=== PATIENT | female | born 1990 | race Caucasian/White ===

== ENCOUNTER 2017-02-13 06:54 | Inpatient (IN) | payer MEDICAID ==
[2017-02-13] MEDS ORDERED: NS 1,000 ML IV ONE (07:00)
[2017-02-13] MEDS ORDERED: LORazepam 2 MG/ML INJ IVP ONE (07:00)
[2017-02-13 07:10] LABS: ADD DIFF? YES; ADD MORPH? NO; ATYPICAL LYMPHOCYTE FLAG 0 (0-99); FRAGMENT RBC FLAG 0 (0-99); HEMATOCRIT 42.9 % (38.0-47.0); LEFT SHIFT FLG 50 (0-99); LIPEMIA HEMOLYSIS FLAG 90 (0-99); MEAN CELL HEMOGLOBIN 28.5 pg (27.9-34.1); MEAN CELL VOLUME 81.4 fL (81.5-99.8); MEAN PLATELET VOLUME 8.8 fL (8.7-11.7); PLATELET CLUMPS FLAG 0 (0-99); PLATELET COUNT 456 10^3/uL (150-400); RED BLOOD CELL COUNT 5.27 10^6/uL (4.18-5.33); RED CELL DISTRIBUTION WIDTH 13.6 % (11.5-15.2)
[2017-02-13 07:15] LABS: ADD SCAN? NO
--- NOTE | 2017-02-13 07:25 | CPEKG ---
Heart Rate: 143 RR Interval: 420 P-R Interval: 112 QRSD Interval: 82 QT Interval: 280 QTC Interval: 432 P [place]: 61 QRS [place]: 4 T Wave [place]: 15 EKG Severity - BORDERLINE ECG - EKG Impression: SINUS TACHYCARDIA EKG Impression: BORDERLINE T WAVE ABNORMALITIES Electronically Signed By: Gilda Branham 15-Feb-2017 14:16:02
[2017-02-13 07:28] LABS: ANION GAP 14 mEq/L (8-16); CALCIUM 9.3 mg/dL (8.5-10.4); CARBON DIOXIDE 23 mEq/l (22-31); CHLORIDE 100 mEq/L (97-110); CREATININE 0.7 mg/dL (0.6-1.0); GLOMERULAR FILTRATION RATE > 60; GLUCOSE 85 mg/dL (70-100); POTASSIUM 3.9 mEq/L (3.5-5.2); SODIUM 137 mEq/L (134-144)
--- NOTE | 2017-02-13 07:31 | EDPHY ---
HPI/HX/ROS/PE/MDM Narrative: CHIEF COMPLAINT: Tachycardia HPI: This patient is a 26 y/o female arriving via EMS presenting with tachycardia and chest pain. She states her pain began this morning upon waking. The pain is localized under her left breast. She denies cough, fever, vomiting, diarrhea, dysuria, abdominal pain, or other associated symptoms. She denies pertinent past medical history. She states she felt well prior to this morning. No trauma. REVIEW OF SYSTEMS: Aside from elements discussed in the HPI, a comprehensive 10-point review of systems was reviewed and is negative. PMH: Denies. SOCIAL HISTORY: Transient. Lives in [place]. Originally from [place]. PHYSICAL EXAM: General:Patient is alert, appears in pain. ENT:Eyes are normal to inspection. ENT inspection normal. Neck: Normal inspection. Full range of motion. Respiratory: Tenderness over left lower costal margin. No respiratory distress. Breath sounds normal bilaterally. Cardiovascular: Tahchycardic rate and rhythm. Strong peripheral pulses. Normal cap refill. Abdomen:The abdomen is nontender to palpation. There are no peritoneal signs. There are normal bowel sounds. Back: Normal to inspection. No tenderness to palpation. Skin: Normal color. No rash. Warm and dry. Extremities: Normal appearance. Full range of motion. Neuro: Oriented x3. Normal motor function. Normal sensory function. ED Course: 26 y/o female presents with tachycardia and left-sided chest pain. Exam reveals tenderness to the left lower costal margin. She is tachycardic at 148 and hypotensive at 93/54. Plan for labs including CBC, chemistries. Administered 1mg IV Ativan. WBC elevated at 40,000. Plan for additional laboratory studies per sepsis protocol including lactic acid, blood cultures, flu swab. Plan to administer 750mg IV Levaquin, 1L IV NS. Lactic 2.3. Chest x-ray shows large lingular consolidation. Plan for CTA chest for further evaluation and to r/o pulmonary embolism. 09:[address] Zambrano, radiologist. CT negative for PE. Evidence of lingular pneumonia as seen on x-ray. Plan to admit for pneumonia, severe sepsis. 09:20 Spoke with hospitalist service. Dr. Culver accepts admission. 11:45 Notified by patient's nurse that she remains hypotensive at 92/47. Repeat Lactaid 2.0. Notified and discussed with Dr. Culver and we are in agreement regarding treatment plan. MDM: This patient presents ultimately with pneumonia but her presentation was complicated by a number of factors. She adamantly denied any previous symptoms , and presented with acute onset of chest pain and tachycardia in the setting of living out of a car, which raised concern for acute PE. Thankfully, CTA was negative for this disease, but our initial efforts in the ED were directed towards this potential diagnosis. Her exam on arrival was made more difficult by (inappropriate) administration of nitroglycerin by EMS prior to arrival, which complicated efforts to assess the cause of her hypotension. Her WBC was extraordinarily high which raised concerns for possible oncologic process, especially given initial lack of fever and her history of having no infectious symptoms. Ultimately, her workup proved positive for pneumonia, and she developed a fever while in the ED. She was aggressively fluid resuscitated and her lactate was initially mildly high but returned back within normal range while in the ED. She was noted to have several low BP readings, but interpretation of this was challenging as patient was actively able to ambulate without assistance in the ED, which did not seem to correlate with septic shock. Dr. Culver and I discussed her case extensively and we agreed to continue to monitor to see if patient's condition declared itself rather than place an emergent central line, as we did not feel pressors were currently indicated, but he will monitor patient closely and this may prove necessary if her condition declines. - Data Points Imaging Results: Imaging Impressions Chest X-Ray 02/13/17 07:00 Impression: Left upper lobe pneumonia; follow-up is recommended to ensure complete clearing.. Chest/Thorax CTA 02/13/17 07:31 Impression: 1. No evidence of pulmonary embolus using CT protocol. 2. Dense consolidation/pneumonia involving the lingula with patchy consolidation left lower lobe and focal area right lower lobe. Findings discussed with Leighton Medrano MD at 9:08 hour, 02/13/2017. Imaging: I viewed and interpreted images myself Laboratory Results: Laboratory Results 02/13/17 07:00 02/13/17 07:00 02/13/17 02/13/17 02/13/17 07:50 07:30 07:00 WBC RBC Hgb Hct MCV MCH MCHC RDW Plt Count MPV Neut % (Auto) Lymph % (Auto) Wilkinson % (Auto) Eos % (Auto) Baso % (Auto) Nucleat RBC Rel Count Absolute Neuts (auto) Absolute Lymphs (auto) Absolute Monos (auto) Absolute Eos (auto) Absolute Basos (auto) Absolute Nucleated RBC Immature Gran % Seg Neutrophils % Band Neutrophils % Lymphocytes % Monocytes % Metamyelocytes % Myelocytes % Immature Gran # Absolute Seg Neuts Absolute Band Neuts Absolute Lymphocytes Absolute Monocytes Absolute Metamyelocyte Absolute Myelocytes RBC/WBC/PLT Morphology Platelet Estimate Large Platelets Smear Review By VBG Lactic Acid 2.3 mmol/L H mmol/L (0.7-2.1) Sodium Potassium Chloride Carbon Dioxide Anion Gap BUN Creatinine Estimated GFR Glucose Calcium Troponin I Beta HCG, Qual Nasal Influenza A PCR NEGATIVE FOR FLU A (NEGATIVE) Nasal Influenza B PCR NEGATIVE FOR FLU B (NEGATIVE) Urine Opiates Screen NEGATIVE (NEGATIVE) Urine Barbiturates NEGATIVE (NEGATIVE) Ur Phencyclidine Scrn NEGATIVE (NEGATIVE) Ur Amphetamine Screen NEGATIVE (NEGATIVE) U Benzodiazepines Scrn NEGATIVE (NEGATIVE) Urine Cocaine Screen NEGATIVE (NEGATIVE) U Marijuana (THC) Screen NEGATIVE (NEGATIVE) 02/13/17 02/13/17 02/13/17 07:00 07:00 07:00 WBC 39.67 10^3/uL H 10^3/uL (3.80-9.50) RBC 5.27 10^6/uL 10^6/uL (4.18-5.33) Hgb 15.0 g/dL g/dL (12.6-16.3) Hct 42.9 % % (38.0-47.0) MCV 81.4 fL L fL (81.5-99.8) MCH 28.5 pg pg (27.9-34.1) MCHC 35.0 g/dL g/dL (32.4-36.7) RDW 13.6 % % (11.5-15.2) Plt Count 456 10^3/uL H 10^3/uL (150-400) MPV 8.8 fL fL (8.7-11.7) Neut % (Auto) Not Reported Lymph % (Auto) Not Reported Wilkinson % (Auto) Not Reported Eos % (Auto) Not Reported Baso % (Auto) Not Reported Nucleat RBC Rel Count 0.0 % % (0.0-0.2) Absolute Neuts (auto) Not Reported Absolute Lymphs (auto) Not Reported Absolute Monos (auto) Not Reported Absolute Eos (auto) Not Reported Absolute Basos (auto) Not Reported Absolute Nucleated RBC 0.00 10^3/uL 10^3/uL (0-0.01) Immature Gran % Not Reported Seg Neutrophils % 56 % % Band Neutrophils % 33 % % Lymphocytes % 5 % % Monocytes % 4 % % Metamyelocytes % 2 % % Myelocytes % 2 % % Immature Gran # Not Reported Absolute Seg Neuts 22.22 10^/uL H 10^/uL (1.70-6.50) Absolute Band Neuts 13.09 10^3/uL H 10^3/uL (0.00-0.70) Absolute Lymphocytes 1.98 10^3/uL 10^3/uL (1.00-3.00) Absolute Monocytes 1.59 10^3/uL H 10^3/uL (0.30-0.80) Absolute Metamyelocyte 0.79 10^3/mL H 10^3/mL (0.00-0.00) Absolute Myelocytes 0.79 10^3/mL H 10^3/mL (0.00-0.00) RBC/WBC/PLT Morphology NORMAL (NORMAL) Platelet Estimate INCREASED H (ADEQ) Large Platelets PRESENT H Smear Review By Sheridan CASPER MD VBG Lactic Acid Sodium 137 mEq/L mEq/L (134-144) Potassium 3.9 mEq/L mEq/L (3.5-5.2) Chloride 100 mEq/L mEq/L (97-110) Carbon Dioxide 23 mEq/l mEq/l (22-31) Anion Gap 14 mEq/L mEq/L (8-16) BUN 10 mg/dL mg/dL (7-23) Creatinine 0.7 mg/dL mg/dL (0.6-1.0) Estimated GFR > 60 Glucose 85 mg/dL mg/dL (70-100) Calcium 9.3 mg/dL mg/dL (8.5-10.4) Troponin I < 0.012 ng/mL ng/mL (0.000-0.034) Beta HCG, Qual NEGATIVE Nasal Influenza A PCR Nasal Influenza B PCR Urine Opiates Screen Urine Barbiturates Ur Phencyclidine Scrn Ur Amphetamine Screen U Benzodiazepines Scrn Urine Cocaine Screen U Marijuana (THC) Screen Medications Given: Acetaminophen (Tylenol) 650 mg PO Q4HRS PRN PRN Reason: Pain, Mild/Fever, Can Take PO Stop: 08/12/17 10:04 Last Admin: 02/13/17 10:40 Dose: 650 mg Ceftriaxone Sodium/Dextrose (Rocephin 1 Gm (Premix)) 50 mls @ 100 mls/hr IV DAILY GASTON PRN Reason: Protocol Stop: 03/15/17 10:29 Last Admin: 02/13/17 10:23 Dose: 50 mls Lactated Ringer's (Lr) 1,000 mls @ 200 mls/hr IV CONT GASTON Stop: 02/14/17 15:29 Last Admin: 02/13/17 10:41 Dose: 1,000 mls Discontinued Medications Sodium Chloride (Ns) 1,000 mls @ 0 mls/hr IV EDNOW ONE; Wide Open PRN Reason: Protocol Stop: 02/13/17 07:01 Last Admin: 02/13/17 07:05 Dose: 1,000 mls Sodium Chloride (Ns) 2,500 mls @ 5,000 mls/hr 30 ml/kg infuse over 30 min ( 2500 ml) IV EDNOW ONE PRN Reason: Protocol Stop: 02/13/17 08:05 Last Admin: 02/13/17 07:48 Dose: 2,500 mls Levofloxacin/Dextrose (Levaquin 750 Mg (Premix)) 150 mls @ 100 mls/hr IV EDNOW ONE PRN Reason: Protocol Stop: 02/13/17 09:23 Last Admin: 02/13/17 08:24 Dose: 150 mls Lorazepam (Ativan Injection) 1 mg IVP EDNOW ONE Stop: 02/13/17 07:01 Last Admin: 02/13/17 07:13 Dose: 1 mg General Time Seen by Provider: 02/13/17 07:00 Initial Vital Signs: Initial Vital Signs Temperature (C) 36.9 C 02/13/17 07:02 Heart Rate 148 H 02/13/17 07:02 Respiratory Rate 30 H 02/13/17 07:02 Blood Pressure 93/54 L 02/13/17 07:02 O2 Sat (%) 92 02/13/17 07:02 O2 Delivery Mode Nasal Cannula O2 (L/minute) 2 Allergies/Adverse Reactions: No Known Allergies Allergy (Unverified 02/13/17 07:05) Home Medications: Medication Instructions Recorded NK [No Known Home Meds] 02/13/17 Departure - Departure Disposition: [facility] Inpatient Acute Clinical Impression: Severe sepsis Pneumonia Qualifiers: Pneumonia type: due to unspecified organism Laterality: left Lung location: unspecified part of lung Qualified Code(s): J18.9 - Pneumonia, unspecified organism Condition: Fair Report Scribed for: Leighton Medrano Report Scribed by: Lucía Harrison Date of Report: 02/13/17 Time of Report: 07:55 Physician Review and Approval Statement: Portions of this note were transcribed by an ED scribe. I personally performed the history, physical exam, and medical decision making; and confirm the accuracy of the information in the transcribed note.
[2017-02-13] MEDS ORDERED: NS 2,500 ML IV ONE (07:36)
[2017-02-13] MEDS ORDERED: IOPAMIDOL (ISOVUE 370) 100 ML BTL IV ONE (07:37)
[2017-02-13 07:39] LABS: TROPONIN I < 0.012 ng/mL (0.000-0.034)
[2017-02-13 07:47] LABS: LARGE PLATELETS PRESENT; PLATELET ESTIMATE INCREASED (ADEQ)
[2017-02-13 08:48] LABS: LACGHOST ORDER
[2017-02-13] MEDS ORDERED: ONDANSETRON 4 MG/2 ML VIAL IVP PRN (10:05)
[2017-02-13] MEDS ORDERED: ONDANSETRON DISINTEGRATING 4 MG TAB PO PRN (10:05)
[2017-02-13] MEDS ORDERED: CEFTRIAXONE 1 GM/DEXTROSE/50 ML BAG IV ONE (10:18)
--- NOTE | 2017-02-13 10:36 | GHP ---
[f rep st] HISTORY AND PHYSICAL DATE OF ADMISSION: 02/13/2017 HISTORY OF PRESENT ILLNESS: Ms. Johnson is a 26-year-old female with a minimal past medical history, although she is a smoker who presents with chest pain that happened early this morning. She noted a cough yesterday productive of yellow sputum. She denies fevers and chills. She reported chest pain and called 911 from a car where she is living with her mother and possibly fiancee. She received nitroglycerin on route. She has not had diarrhea or vomiting. She is not a heavy alcohol drinker, in fact she drinks no alcohol. She has not had urinary symptoms or abdominal pain. She is currently homeless but denies sick contacts. When I see her in the emergency department she is somnolent but arousable. She did receive a mg of Ativan in the emergency department. Her mother notes she has a diagnosis of anxiety. REVIEW OF SYSTEMS: Complete 10-point review of systems conducted negative except as noted in the HPI. PAST MEDICAL HISTORY: Anxiety. ALLERGIES: No known drug allergies. HOME MEDICATIONS: None. SOCIAL HISTORY: Currently homeless. Originally from [place]. She smokes cigarettes. Minimal alcohol. FAMILY HISTORY: Father had diabetes. PHYSICAL EXAMINATION: VITAL SIGNS: Temperature 37.4, blood pressure 93/41, pulse in the 130s breathing 29 times a minute, 98% on 2 L. GENERAL: Somnolent but arousable. No acute distress. HEENT: Mucous membranes are dry. NECK: Supple. No lymphadenopathy or JVD. LUNGS: Clear to auscultation anterolaterally. She will not sit up for a full exam. HEART: S1, S2, tachycardic without murmur. ABDOMEN: Soft, nontender, nondistended. LOWER EXTREMITIES: No edema. Calves nontender. SKIN: Without rash. NEUROLOGIC: Exam is nonfocal. LABS: White count 39.7 with no differential although her neutrophil count is 22 , and band count is 13, this is a profound left shift. Venous lactate was 2.3 on presentation, now 2. Sodium 137, potassium 3.9, chloride 100, bicarb 23, BUN 10, creatinine 0.7, glucose 85. Troponin less than 0.012. Beta HCG is negative. Her nasal swab was influenza negative. She has a negative tox screen. Chest x-ray, interpreted by me, shows lingular pneumonia. EKG interpreted by me shows sinus tachycardia at 143 with normal axis and intervals and no ST or T-wave changes. CTA of the chest shows no pulmonary embolism and dense left lingular infiltrate with air bronchograms and no pleural effusion. Also noted by the radiologist is a focal area of infiltrate in the right lower lobe. ASSESSMENT/PLAN: A 26-year-old female presents with lingular pneumonia and sepsis. 1. Sepsis. This probably qualifies as severe sepsis given her tachycardia. She has received a fluid bolus, blood cultures and broad-spectrum antibiotics. She is afebrile. She does not have influenza. 2. Pneumonia. This is a lingular pneumonia. She received levofloxacin in the emergency department. I will transition to ceftriaxone and Zithromax. I feel given the degree of infiltrate in her illness I think there is a high likelihood this represents pneumococcal pneumonia. 3. Tobacco. Counseled cessation. 4. Prophylaxis. Pharmacologic prophylaxis indicated. Start low-molecular heparin. 5. Tachycardia. This is a strong inflammatory response in a young healthy person with significant pneumonia. Will admit her to step-down. 6. Somnolence. This is attributable to Ativan. Will follow. DISPOSITION: Step-down unit inpatient. UPDATE: patient persistently hypotensive/tachycardic. upon returning from [facility], cvp 4, sbp in 70's. volume and albumin given, pressors started w HR decreasing to 110's and map in 60's w uop and alert mentation. 45 ' crit care /[id number]/MODL MTDD
[2017-02-13] MEDS ORDERED: ACETAMINOPHEN 325 MG TAB ONE (10:39)
[2017-02-13] MEDS: ACETAMINOPHEN 325 MG TAB PO PRN (10:40)
[2017-02-13] MEDS: LR 1,000 ML IV SCH (10:41)
[2017-02-13] MEDS ORDERED: ALTEPLASE 2 MG VIAL IVP PRN (13:32)
--- NOTE | 2017-02-13 14:14 | PDMN ---
Medical Necessity Medical necessity: Patient meets INPT criteria per physician note and MCG M-160 Sepsis and Other Febrile Illness, without Focal Infection (lingular pneumonia on CXR, poss pneumococcal; lactic acidosis/lactate 2.3, tachypnea/RR to 36, tachycardia to 140's, hypotension/ syst BP 76 after IV hydration; leukocytosis/ WBC > 39,000; anticipated LOS > 2 midnights for ongoing IV hydration, IV antibiotics, supplemental O2, ongoing treatment/monitoring in SDU.)
[2017-02-13] MEDS ORDERED: ALBUMIN 5% 500 ML IV ONE (14:54)
[2017-02-13] MEDS ORDERED: ALBUMIN 5% 500 ML BOTTLE IV ONE (14:55)
[2017-02-13] MEDS ORDERED: NOREPINEPHRINE/NS 4 MG/500 ML BAG IV ONE (15:20)
[2017-02-13] MEDS: NOREPINEPHRINE/NS 500 ML IV SCH ×2 (16:07→22:29)
[2017-02-13] MEDS ORDERED: VANCOMYCIN HCL/NORMAL SALINE 250 ML IV ONE (19:57)
[2017-02-13] MEDS ORDERED: VANCOMYCIN 1.25 GM in D5W 250 ML IV ONE (19:57)
[2017-02-14] MEDS: ACETAMINOPHEN 325 MG TAB PO PRN ×2 (05:30→12:05)
[2017-02-14 05:42] LABS: % IMMATURE GRANULYOCYTES 1.2 % (0.0-1.1); ABSOLUTE IMMATURE GRANULOCYTES 0.28 10^3/uL (0.00-0.10); ADD DIFF? NO; ADD MORPH? NO; ADD SCAN? NO; ATYPICAL LYMPHOCYTE FLAG 0 (0-99); FRAGMENT RBC FLAG 0 (0-99); HEMATOCRIT 31.8 % (38.0-47.0); HEMOGLOBIN 10.8 g/dL (12.6-16.3); LEFT SHIFT FLG 30 (0-99); LIPEMIA HEMOLYSIS FLAG 90 (0-99); MEAN CELL HEMOGLOBIN 28.1 pg (27.9-34.1); MEAN CELL VOLUME 82.8 fL (81.5-99.8); MEAN PLATELET VOLUME 8.8 fL (8.7-11.7); PLATELET CLUMPS FLAG 0 (0-99); PLATELET COUNT 297 10^3/uL (150-400); RED BLOOD CELL COUNT 3.84 10^6/uL (4.18-5.33); RED CELL DISTRIBUTION WIDTH 13.9 % (11.5-15.2)
[2017-02-14 05:52] LABS: INR 1.81 (0.83-1.16); PROTIME(PATIENT) 21.1 SEC (12.0-15.0)
[2017-02-14] MEDS ORDERED: AZITHROMYCIN IV 500 MG in D5W 250 ML IV SCH (09:00)
[2017-02-14] MEDS: LR 1,000 ML IV SCH (09:09)
[2017-02-14] MEDS: ENOXAPARIN 40 MG/0.4 ML SYR SC SCH (09:10)
[2017-02-14] MEDS: ALBUTEROL 3 ML DEYVIAL IH SCH ×3 (11:10→21:40)
[2017-02-14] MEDS: NOREPINEPHRINE/NS 500 ML IV SCH (12:01)
--- NOTE | 2017-02-14 12:30 | ASMTCASEMG ---
Living Arrangements What is your living Answers: With One Parent arrangement? Who do you live with? Type Of Residence What kind of residence do Answers: Homeless you live in? Type of Residence Facility Name Notes: Patient, her mother and her fiance are living out of their car presently. They are on their way to [facility] where the filiv has a son in the . They are hoping his son can offer them a place to live until they get back on their feet financially. Discharge Plan Comments Coordination Status Comments Notes: Patient is a 26yo single female who was admitted for lingular pneumonia and sepsis. Patient is traveling through the area with her fiance and her mother. They are on their way to [facility] where they hope to find living accomodations with patient's fiance's son. There are not therapies ordered at this time. Spoke with patient and her family and gave them the Homeless Packet for resources here in [place]. It includes places for hot meals, the retirement information, warming centers, and clinics for f/u with medical care. Patient's fiance is easily upset. Attempted to de-escalate when he was upset they could not all sleep in the room last night. Fiance has unrealistic expectations, as does the patient and her mother. CM available for any other issues that arise. Date Signed: 02/14/2017 12:30 PM Electronically Signed By:Mell Velazquez LCSW
--- NOTE | 2017-02-14 15:52 | HOSPPROG ---
Hospitalist Progress Note Assessment/Plan: * Septic shock - strep pneumo -IV levophed - wean off as able * Strep pneumo PNA with bacteremia -IV ceftriaxone * Acute respiratory failure - RR still 30 * Tobacco dependence -cessation recommended Subjective: Still with pleuritic CP Objective: Vital Signs Temp Pulse Resp BP Pulse Ox 36.7 C 101 H 30 H 98/56 L 97 02/14/17 11:21 02/14/17 12:00 02/14/17 12:00 02/14/17 12:00 02/14/17 12:00 Laboratory Results 02/14/17 05:30 02/13/17 02/14/17 02/15/17 05:59 05:59 05:59 Intake Total 7259 Balance 7259 PT 21.1 SEC (12.0-15.0) H 02/14/17 05:30 INR 1.81 (0.83-1.16) H 02/14/17 05:30 d/w Dr. Truong - better than yesterday CXR - persistent infiltrate - Physical Exam Constitutional: no apparent distress, appears nourished, not in pain Cardiovascular: regular rate and rhythym, no murmur, rub, or gallop Respiratory: no respiratory distress, no rales or rhonchi, clear to auscultation , inspiratory crackles, No expiratory wheeze Gastrointestinal: normoactive bowel sounds, soft, non-tender abdomen, no palpable masses Skin: no rashes or abrasions, no fluctuance, no induration Neurologic: AAOx3, sensation intact bilaterally Psychiatric: interacting appropriately, not anxious, not encephalopathic, thought process linear ICD10 Worksheet Patient Problems: Problems Problem Status Onset Pneumonia Acute Severe sepsis Acute
--- NOTE | 2017-02-14 15:52 | GCON ---
[f rep st] CONSULTATION DATE OF CONSULTATION: 02/14/2017 REASON FOR CONSULTATION: Bacteremic pneumococcal pneumonia, associated with sepsis. HISTORY OF PRESENT ILLNESS: The patient is a healthy 26-year-old, who presented yesterday with cough and mucus and some left-sided chest pain. She was somewhat somnolent on arrival. Chest x-ray and C T angiogram showed a dense lingular pneumonia with patchy infiltrates at the right and left base. Bl ood cultures have come up positive for Streptococcus pneumoniae. She received Levaquin and ceftriaxo ne in the emergency department. She is on azithromycin now. She received 1 dose of vancomycin last night before sensitivities were available on her gram positive cocci. She has received significant f luids and albumin. She was hypotensive and is on low-dose Levophed. PAST MEDICAL HISTORY: Largely unremarkable. SOCIAL HISTORY: She does smoke cigarettes, less than 1 pack per day. She apparently is currently ho meless ? She does not drink significant alcohol. Drugs are negative. FAMILY HISTORY: Diabetes. REVIEW OF SYSTEMS: A 10-point review of systems is negative. There is no history of heart disease, thromboembolic disease, renal disease, etc. ALLERGIES: None known. PHYSICAL EXAMINATION: GENERAL: Reveals a young woman who is sitting up in a chair. She is in no ap parent distress. VITAL SIGNS: She is on oxygen at 3 L with saturations of 100%. Pulse is 90 with s inus rhythm on the monitor. She is afebrile and has been so since admission. Respiratory rate is 24 . NECK: Unremarkable for lymphadenopathy or thyromegaly. There is no jugular venous distention. C HEST: Fairly clear bilaterally. There are no significant rales. She does have some rhonchi with vo luntary coughing. There are no wheezes. There is no evidence of consolidation. No E to A changes. HEART: Regular in rate and rhythm. There is a soft systolic murmur, no gallop. ABDOMEN: Soft, no ntender. Bowel sounds are present. EXTREMITIES: Unremarkable for significant edema. There are no cords; no tenderness. NEUROLOGIC: Examination is within normal limits. She has no Tobias. There is a PICC line in the right upper extremity. CVP is currently 10. RADIOLOGICAL STUDIES: As outlined above. LABORATORY DATA: White blood cell count is 22,000, hematocrit 31.8. Platelets are normal. INR was elevated on admission at 1.8. Lactate peaked at 4.5, currently 1.2. Basic metabolic panel on admiss ion was within normal limits. Influenza A/B is negative. Toxicology screen was negative. Serology for Streptococcus pneumoniae is pending. Blood cultures are positive for Streptococcus pneumoniae. Sensitivities are pending. ASSESSMENT: 1. Bacteremic multifocal pneumococcal pneumonia: She is doing well. Pulmonary rosales, she has a fair ly unremarkable examination, and is only mildly tachypneic, on minimal oxygen. 2. Severe sepsis: She has received intravenous fluids. Blood pressures have improved. She is on l ow-dose Levophed. CVP is appropriate. Steroids are not indicated at this time. 3. Deep venous thrombosis prophylaxis: On enoxaparin. 4. Gastrointestinal prophylaxis: None indicated, eating. 5. Metabolic: No significant issues identified. PLAN AND RECOMMENDATIONS: The patient will be kept in the intensive care unit. Sensitivities will b e awaited on her pneumococcus. Current antibiotics will be continued. Intravenous fluids will be co ntinued. Norepinephrine will be weaned, as blood pressure tolerates to keep the mean arterial pressu re at 65 or above. Followup chest x-ray will be obtained. Laboratory will be followed daily for now . Further plans and recommendations will be made based on her progress over the next 12-24 hours. /[id number]/MODL
[2017-02-14] MEDS ORDERED: D5W NS 1,000 ML IV SCH (16:00)
[2017-02-15 05:05] LABS: % IMMATURE GRANULYOCYTES 0.4 % (0.0-1.1); ABSOLUTE IMMATURE GRANULOCYTES 0.04 10^3/uL (0.00-0.10); ADD DIFF? NO; ADD MORPH? NO; ADD SCAN? NO; ATYPICAL LYMPHOCYTE FLAG 0 (0-99); FRAGMENT RBC FLAG 0 (0-99); HEMATOCRIT 31.5 % (38.0-47.0); HEMOGLOBIN 10.5 g/dL (12.6-16.3); LEFT SHIFT FLG 0 (0-99); LIPEMIA HEMOLYSIS FLAG 80 (0-99); MEAN CELL HEMOGLOBIN 27.6 pg (27.9-34.1); MEAN CELL HEMOGLOBIN CONCENTR. 33.3 g/dL (32.4-36.7); MEAN CELL VOLUME 82.7 fL (81.5-99.8); MEAN PLATELET VOLUME 8.9 fL (8.7-11.7); PLATELET CLUMPS FLAG 10 (0-99); PLATELET COUNT 290 10^3/uL (150-400); RED BLOOD CELL COUNT 3.81 10^6/uL (4.18-5.33)
[2017-02-15] MEDS: ALBUTEROL 3 ML DEYVIAL IH SCH ×4 (05:14→21:19)
[2017-02-15 05:19] LABS: ALANINE AMINOTRANSFERASE 27 IU/L (9-52); ALBUMIN 2.4 g/dL (3.5-5.0); ALKALINE PHOSPHATASE 59 IU/L (38-126); ANION GAP 9 mEq/L (8-16); ASPARTATE AMINOTRANSFERASE 11 IU/L (14-46); BILIRUBIN,TOTAL 0.1 mg/dL (0.1-1.4); BILIRUBIN-CONJUGATED 0.1 mg/dL (0.0-0.5); CARBON DIOXIDE 26 mEq/l (22-31); CHLORIDE 111 mEq/L (97-110); CREATININE 0.5 mg/dL (0.6-1.0); GLOMERULAR FILTRATION RATE > 60; GLUCOSE 90 mg/dL (70-100); POTASSIUM 3.5 mEq/L (3.5-5.2); SODIUM 146 mEq/L (134-144); TOTAL PROTEIN 4.9 g/dL (6.3-8.2)
[2017-02-15 05:20] LABS: INR 1.18 (0.83-1.16); PROTIME(PATIENT) 15.2 SEC (12.0-15.0)
[2017-02-15] MEDS: ENOXAPARIN 40 MG/0.4 ML SYR SC SCH (08:07)
[2017-02-15] MEDS ORDERED: PROTOCOL MAGNESIUM 1 DOSE IV PRN (11:01)
[2017-02-15] MEDS ORDERED: PROTOCOL POTASSIUM 1 DOSE MISC PRN (11:01)
[2017-02-15] MEDS ORDERED: POTASSIUM CL 10 MEQ TAB PO ONE ×2 (12:32→18:30)
[2017-02-15] MEDS ORDERED: MAGNESIUM SULF 1 GM/DEXTROSE 100 ML IV ONE (12:59)
--- NOTE | 2017-02-15 13:00 | ECHO ---
[email or web address] [address] [address] Main: [phone] Fax: Transthoracic Echocardiogram Name: CARROLL RITTER MR#: [id number] Study Date: 02/15/2017 Study Time: 11:53 AM Date of : 1990 Age: 26 year(s) Height: 157.5 cm (62 in.) Weight: 83.46 kg (184 lb.) BSA: 1.84 m2 Gender: Female Examination: Echo Indication: V-tach, PNA, respiratory failure Image Quality: Contrast: Requested by: Gissell Bond BP: 106 mmHg/64 mmHg Heart Rate: Rhythm: Indication: V-tach, PNA, respiratory failure Procedure Staff Recovery Collector: Ephraim Kaiser Reading Physician: Kavon Noland Requesting Provider: Conclusions: 1)Normal LV size and systolic function with a LVEF of 60% and normal wall motions. 2)Mild to moderate MR without MV prolapse. 3)Mild TR with estimated normal PA pressures. 4)No obvious valvular vegetations noted. Measurements: Chambers Valvular Assessment AV/MV Valvular Assessment TV/PV Normal Normal Normal Name Value Range Name Value Range Name Value Range Ao Kamala (MM): 2.4 cm (2.2 cm-3.7 AV Vmax: 1.47 m/s (1 m/s-1.7 TR Vmax: 2.44 mm/s ( - ) cm) m/s) TR PGmax: 24 mmHg ( - ) IVSd (2D): 0.7 cm (0.6 cm-1.1 AV maxP mmHg ( - ) syst. PAP: 34 mmHg ( - ) cm) LVOT Vmax: 1.08 m/s (0.7 m/s-1.1 PV Vmax: 1.13 m/s (0.6 m/s-0.9 LVDd (2D): 4.3 cm (3.9 cm-5.3 m/s) m/s) cm) MV E Vmax: 1.02 m/s ( - ) PV PGmax: 5 mmHg ( - ) LVDs (2D): 2.9 cm (2.1 cm-4 MV A Vmax: 0.96 m/s ( - ) cm) MV E/A: 1.06 ( - ) LVPWd (2D): 0.9 cm ( - ) LVEF (2D): 61 (>=54 %) Continued Measurements: Chambers Valvular Assessment AV/MV Valvular Assessment TV/PV Name Value Name Value Name Value LADs Lon.0 cm MV E/E' Lateral: 9.60 CVP (est.): 10 mmHg LA Area: 15.5 cm2 Findings: Left Ventricle: Patient: CARROLL RITTER Study Date: 02/15/2017 Page 1 of 2 11:53 AM Normal size left ventricle. No LV hypertrophy. Normal global systolic LV function. EF is 61 %. No regional wall motion abnormality. Normal diastolic LV function. Right Ventricle: Normal size right ventricle. Left Atrium: The left atrium is normal in size. Right Atrium: The right atrium is normal in size. Mitral Valve: The mitral valve is normal in appearance and function. Mild to moderate mitral regurgitation. Aortic Valve: The aortic valve is normal in appearance and function. Tricuspid Valve: The tricuspid valve is normal in appearance and function. Mild tricuspid regurgitation is present. The pulmonary artery pressure is normal. Pulmonic Valve: The pulmonic valve is normal in appearance and function. Aorta: The aorta is normal. Pericardium: No pericardial effusion. Exam Comments: No obvious vegetation noted on the aortic or the mitral valve.. (No Signature Object) Patient: CARROLL RITTER Study Date: 02/15/2017 Page 2 of 2 11:53 AM [id number]
--- NOTE | 2017-02-15 14:54 | PDINTPN ---
Art Preparator Progress Note Assessment/Plan: Assessment: Bacteremic multi lobar pneumococcal pneumonia. Improving clinically. Off of oxygen, off norepinephrine. Examination relatively unremarkable, with minimal findings on the left. Ambulating in her room. Chest x-ray yesterday did show increasing lingular density compared to admission. Severe sepsis: Resolved. Off norepinephrine. Blood pressure now normal. Metabolic: No significant issues identified. On replacement protocols. Anemia: Hematocrit 31, down from 43 on admission. In part dilutional. Question underlying anemia. No evidence of bleeding. Will check iron studies. DVT prophylaxis: Enoxaparin. GI prophylaxis: None, eating. Ventricular tachycardia. Has had some short runs. Question related to PICC line or ventricular irritability from lingular inflammation. Echo within normal limits. No evidence of a pericardial effusion. No evidence of underlying heart disease. Plan: Can transfer to PCU today. Heart rate will continue to be monitored in light of her VT. Continue bronchopulmonary therapies. Can switch to Levaquin p.o.. Increase mobilization as tolerated. Check iron studies. PA and lateral chest x-ray will be done tomorrow. Possibly discharge in the next day or 2. Discussed with nursing, hospitalist, ICU multi disciplinary team. Subjective: Complains of vague left-sided chest discomfort. Denies significant shortness of breath. Some cough, mucus. Overall, feels better. Objective: Vital Signs Temp Pulse Resp BP Pulse Ox 36.5 C 101 H 20 106/64 97 02/15/17 08:00 02/15/17 12:00 02/15/17 12:00 02/15/17 12:00 02/15/17 12:00 Laboratory Results 02/15/17 05:00 02/15/17 05:00 02/14/17 02/15/17 02/16/17 05:59 05:59 05:59 Intake Total 7259 3597 Balance 7259 3597 PT 15.2 SEC (12.0-15.0) H 02/15/17 05:00 INR 1.18 (0.83-1.16) H 02/15/17 05:00 Laboratory Tests 02/15/17 02/15/17 02/15/17 05:00 05:00 05:00 PT 15.2 H INR 1.18 H Calcium 8.0 L Magnesium 1.7 Total Bilirubin 0.1 AST 11 L ALT 27 Albumin 2.4 L Cardiac echo: Within normal limits Physical Exam - Physical Exam General Appearance: alert, no apparent distress, other (Off norepinephrine) EENT: other (Off oxygen, on room air) Neck: normal inspection (No JVD) Respiratory: lungs clear (Anteriorly), decreased breath sounds (At bases), rales (Few on left? Quite minimal of present), No rhonchi, No wheezing, No pleural rub Cardiac/Chest: regular rate, rhythm, other (Has had some short runs of what looks like VT. Asymptomatic.) Abdomen: normal bowel sounds, non-tender, soft Skin: normal color, warm/dry Extremities: No pedal edema Neuro/Psych: no motor/sensory deficits, No cognition abnormalities ICD10 Worksheet Patient Problems: Problems Problem Status Onset Pneumonia Acute Severe sepsis Acute
--- NOTE | 2017-02-15 16:35 | HOSPPROG ---
Hospitalist Progress Note Assessment/Plan: * Septic shock - strep pneumo -IV levophed - weaned off * Strep pneumo PNA with bacteremia -PO Levaquin * Acute respiratory failure - improved * Tobacco dependence -cessation recommended * NSVT -? irritation from PICC -ECHO normal -keep K > 4.0, Mg > 2.0 Subjective: Feeling better Objective: Vital Signs Temp Pulse Resp BP Pulse Ox 36.5 C 101 H 20 106/64 97 02/15/17 08:00 02/15/17 12:00 02/15/17 12:00 02/15/17 12:00 02/15/17 12:00 Laboratory Results 02/15/17 05:00 02/15/17 05:00 02/14/17 02/15/17 02/16/17 05:59 05:59 05:59 Intake Total 7259 3597 Balance 7259 3597 PT 15.2 SEC (12.0-15.0) H 02/15/17 05:00 INR 1.18 (0.83-1.16) H 02/15/17 05:00 d/w dr. reyes - improving, off pressors, ok for out of ICU tele reviewed - 1 breif Vtach run ECHO - normal EF - Physical Exam Constitutional: no apparent distress, appears nourished, not in pain Cardiovascular: regular rate and rhythym, no murmur, rub, or gallop Respiratory: no respiratory distress, no rales or rhonchi, clear to auscultation Gastrointestinal: normoactive bowel sounds, soft, non-tender abdomen, no palpable masses Skin: no rashes or abrasions, no fluctuance, no induration Neurologic: AAOx3, sensation intact bilaterally Psychiatric: interacting appropriately, not anxious, not encephalopathic, thought process linear ICD10 Worksheet Patient Problems: Problems Problem Status Onset Pneumonia Acute Severe sepsis Acute
[2017-02-15 18:30] LABS: POTASSIUM 2.4 mEq/L (3.5-5.2)
[2017-02-15 19:51] VITALS: TEMP 98.6
[2017-02-16 05:06] VITALS: BP 115/60
[2017-02-16] MEDS: ALBUTEROL 3 ML DEYVIAL IH SCH (05:34)
[2017-02-16 05:38] VITALS: PULSE 93; RESP 26; O2SAT 100
[2017-02-16 05:59] LABS: % IMMATURE GRANULYOCYTES 0.5 % (0.0-1.1); ABSOLUTE IMMATURE GRANULOCYTES 0.03 10^3/uL (0.00-0.10); ADD DIFF? NO; ADD MORPH? NO; ADD SCAN? NO; ATYPICAL LYMPHOCYTE FLAG 20 (0-99); FRAGMENT RBC FLAG 0 (0-99); HEMATOCRIT 36.4 % (38.0-47.0); HEMOGLOBIN 12.3 g/dL (12.6-16.3); LEFT SHIFT FLG 0 (0-99); LIPEMIA HEMOLYSIS FLAG 90 (0-99); MEAN CELL HEMOGLOBIN CONCENTR. 33.8 g/dL (32.4-36.7); MEAN CELL VOLUME 82.7 fL (81.5-99.8); MEAN PLATELET VOLUME 9.1 fL (8.7-11.7); PLATELET CLUMPS FLAG 0 (0-99); PLATELET COUNT 347 10^3/uL (150-400)
[2017-02-16 06:13] LABS: ANION GAP 10 mEq/L (8-16); CALCIUM 8.7 mg/dL (8.5-10.4); CARBON DIOXIDE 23 mEq/l (22-31); CHLORIDE 112 mEq/L (97-110); CREATININE 0.5 mg/dL (0.6-1.0); GLOMERULAR FILTRATION RATE > 60; GLUCOSE 90 mg/dL (70-100); MAGNESIUM 1.9 mg/dL (1.6-2.3); POTASSIUM 4.3 mEq/L (3.5-5.2); SODIUM 145 mEq/L (134-144)
[2017-02-16 06:22] LABS: % SATURATION 24 % (20-55); TOTAL IRON BINDING CAPACITY 246 ug/dL (260-490)
--- NOTE | 2017-02-16 06:53 | HOSPPROG ---
Hospitalist Progress Note Assessment/Plan: notified via page at 0650 that patient had left AMA. Objective: Vital Signs Temp Pulse Resp BP Pulse Ox 37.0 C 93 26 H 115/60 100 02/16/17 00:00 02/16/17 05:34 02/16/17 05:34 02/16/17 00:00 02/16/17 05:34 Laboratory Results 02/16/17 05:30 02/16/17 05:30 02/15/17 02/16/17 02/17/17 05:59 05:59 05:59 Intake Total 3597 1442 Output Total 4 Balance 3597 1438 PT 15.2 SEC (12.0-15.0) H 02/15/17 05:00 INR 1.18 (0.83-1.16) H 02/15/17 05:00 ICD10 Worksheet Patient Problems: Problems Problem Status Onset Pneumonia Acute Severe sepsis Acute
--- NOTE | 2017-02-16 15:47 | ASDISCHSUM ---
Discharge Information Plan Status: Medically Cleared to Leave:02/15/2017 Discharge Date:02/16/2017 07:15 AM CM D/C Disposition:Against Medical Advice ADT D/C Disposition:Against Medical Advice Projected Discharge Date:02/16/2017 07:00 AM Transportation at D/C:Friend Discharge Delay Reason: Follow-Up Date:02/16/2017 07:00 AM Discharge Slot: Final Diagnosis:PNA, Severe sepsis Placement Information Patient Contact Information Contact Name:SHANTI Relationship: Address: Home Phone: Work Phone: City: Alternate Phone: State/Zip Code: Email: Financial Information Financial Class:MD Primary Plan Desc:[employer] [place] Primary Plan Number:[id number] Secondary Plan Desc: Secondary Plan Number: Assessment Information LACE LACE Acuity / Level of Care Answers: Was the patient admitted to hospital via the emergency department? Yes: Emergency dept visits in Answers: 1 last 6 months Score: 4 Date Signed: 02/13/2017 11:13 AM Electronically Signed By:Shirley Helms RN [facility] Initial CM Assessment Living Arrangements What is your living Answers: With One Parent arrangement? Who do you live with? Type Of Residence What kind of residence do Answers: Homeless you live in? Type of Residence Facility Name Notes: Patient, her mother and her fiance are living out of their car presently. They are on their way to [facility] where the filiv has a son in the . They are hoping his son can offer them a place to live until they get back on their feet financially. Discharge Plan Comments Coordination Status Comments Notes: Patient is a 26yo single female who was admitted for lingular pneumonia and sepsis. Patient is traveling through the area with her fiance and her mother. They are on their way to [facility] where they hope to find living accomodations with patient's guy's son. There are not therapies ordered at this time. Spoke with patient and her family and gave them the Homeless Packet for resources here in [place]. It includes places for hot meals, the [facility] information, warming centers, and clinics for f/u with medical care. Patient's guy is easily upset. Attempted to de-escalate when he was upset they could not all sleep in the room last night. Guy has unrealistic expectations, as does the patient and her mother. CM available for any other issues that arise. Date Signed: 02/14/2017 12:30 PM Electronically Signed By:Mell Velazquez LCSW Case Management Discharge Plan Note Case Management Discharge Discharge Order Complete? Answers: No Notes: Patient left AMA Patient to Obtain Answers: via Family Medications Transportation Arranged Answers: Family/Friends Transport will Pick (Date 02/16/2017 12:00 AM & Time) Family Notified Answers: Yes Notes: Family present Discharge Comments Notes: Patient left the hospital today AMA. Date Signed: 02/16/2017 03:46 PM Electronically Signed By:Anh Meng LCSW Intervention Information
--- NOTE | 2017-02-17 00:02 | GDS ---
[f rep st] DISCHARGE SUMMARY Please note this is an against medical advice discharge. DISCHARGE DIAGNOSES: 1. Septic shock with Streptococcus pneumoniae bacteremia. 2. Streptococcus pneumococcal pneumonia. 3. Acute respiratory failure. 4. Tobacco dependence. 5. Brief nonsustained ventricular tachycardia. HISTORY: The patient is a 26-year-old female, currently living out of her car with her mom and her f iance in transition from [place] to [facility]. She developed strep pneumo pneumonia and had 4 out of 4 positive blood cultures. On presentation, she was in septic shock requiring admission to ICU and placed on IV Levophed drip. She improved on IV ceftriaxone and was weaned off pressors. Her Strep pneumo was sensitive to Levaquin. She was initiated on oral antibiotics. Her respiratory obed lure improved. Patient was pleasant and cooperative throughout her hospital stay; however, her mother was caught acosta ppropriately sleeping in our lobby and asked to leave. When the patient discovered this, she got radha y angry and signed herself out very quickly AMA. She left prior to any antibiotic prescription being written or any physician having attempted to see her. This is high risk given her suboptimally jyotsna daniel bacteremia. /[id number]/MODL
== END 2017-02-16 07:15 | disposition left against medical advice (07) | DRG 871 ==
LOC: F2N 14:45
PROVIDERS: ADMIT Internal Medicine; ATTEND Internal Medicine
DX: A40.3 Sepsis due to Streptococcus pneumoniae (principal); R65.21 Severe sepsis with septic shock; J13 Pneumonia due to Streptococcus pneumoniae; J96.00 Acute respiratory failure, unspecified whether with hypoxia or hypercapnia; I95.9 Hypotension, unspecified; I47.2 Ventricular tachycardia; F17.210 Nicotine dependence, cigarettes, uncomplicated; F41.9 Anxiety disorder, unspecified; Z59.0 Homelessness
CPT/HCPCS: 80305; C1751; J0456; J0696; J1650; J1956; J2060; J3370; J3475; P9041; Q9967

== ENCOUNTER 2017-02-18 03:49 | Inpatient (IN) | payer MEDICAID ==
[2017-02-18] MEDS ORDERED: NS 1,000 ML IV ONE ×2 (03:53→04:02)
[2017-02-18] MEDS ORDERED: IPRATROPIUM/ALBUTEROL 3 ML DEYVIAL IH ONE (03:53)
--- NOTE | 2017-02-18 04:01 | EDPHY ---
H & P Stated Complaint: L-side pain r/t pneumonia HPI/ROS: HPI CHIEF COMPLAINT: Worsening pneumonia, shortness of breath HISTORY OF PRESENT ILLNESS: Patient 26 y.o old female, homeless, she was recently hospitalized for septic shock with Streptococcus pneumonia, bacteremia , brief episode of Ventricular tachycardia and acute respiratory failure (FEB 16 ), she signed herself out very quickly against medical advice two days ago, after becoming upset about her mom not being able to sleep in the waiting room. She left the hospital without getting paperwork or prescriptions specifically an antibiotic. She now presents back from the care home with worsening shortness of breath and feeling ill. Of note upon arrival to the emergency room her vital signs are stable. She is not febrile. However she did have a oxygen saturation upon arrival of 88 plan on room air. I did review her discharge summary. She was supposed to be on Levaquin. Her blood cultures were susceptible to this. Past Medical History: Anxiety Past Surgical History: Denies significant surgical history Social History: Denies drugs alcohol tobacco. Homeless. Family History: Noncontributory. ROS REVIEW OF SYSTEMS: A comprehensive 10 point review of systems is otherwise negative aside from elements mentioned in the history of present illness. Exam Constitutional appears unwell, triage nursing summary reviewed, vital signs reviewed, awake/alert. Eyes normal conjunctivae and sclera, EOMI, PERRLA. HENT normal inspection, atraumatic, moist mucus membranes, no epistaxis, neck supple/ no meningismus, no raccoon eyes. Respiratory decreased breath sounds on the left side, crackles left base, normal breath sounds, no respiratory distress, no wheezing. Cardiovascular rate normal, regular rhythm, no murmur, no edema, distal pulses normal. Gastrointestinal soft, non-tender, no rebound, no guarding, normal bowel sounds, no distension, no pulsatile mass. Genitourinary no CVA tenderness. Musculoskeletal no midline vertebral tenderness, full range of motion, no calf swelling, no tenderness of extremities, no meningismus, good pulses, neurovascularly intact. Skin pink, warm, & dry, no rash, skin atraumatic. Neurologic awake, alert and oriented x 3, AAOx3, moves all 4 extremities equally, motor intact, sensory intact, CN II-XII intact, normal cerebellar, normal vision, normal speech. Psychiatric normal mood/affect. Heme/Lymph/Immune no lymphadenopathy. Differential Diagnosis: Includes but is not limited to in a particular order pneumonia, worsening bacteremia, partially treated pneumonia, partially treated bacteremia, sepsis with severe sepsis, shock, dehydration Medical Decision Making: For this patient she did not complete her course of Levaquin as she left against medical advice, she was here for septic shock streptococcal pneumonia, bacteremia, V-tach, we will establish an IV for her, give her fluid bolus, IV Levaquin 750 mg, she does not repeat cultures, check blood work, including chemistry, and we will readmit her back to the hospital. Repeat chest x-ray as well. Re-evaluation: 408: Chest x-ray two view: Left lower lobe pneumonia appreciated. EKG interpretation by me on record in [employer] system. Impression time of EKG 4:16 a.m., sinus rhythm rate of 96, no acute ischemic changes. Source: Patient, EMS - Personal History LMP (Females 10-55): 1-7 Days Ago Current Tetanus/Diphtheria Vaccine: Yes - Medical/Surgical History Hx Asthma: No Hx Chronic Respiratory Disease: No Hx Diabetes: No Hx Cardiac Disease: No Hx Renal Disease: No Hx Cirrhosis: No Hx Alcoholism: No Hx HIV/AIDS: No Hx Splenectomy or Spleen Trauma: No Other PMH: anxiety, tonsillectomy and addnoids, ear tubes - Social History Smoking Status: Heavy smoker Constitutional: Initial Vital Signs Temperature (C) 36.6 C 02/18/17 03:54 Heart Rate 97 02/18/17 03:54 Respiratory Rate 18 02/18/17 03:54 Blood Pressure 116/67 02/18/17 03:54 O2 Sat (%) 95 02/18/17 03:54 O2 Delivery Mode Room Air Allergies/Adverse Reactions: No Known Allergies Allergy (Verified 02/18/17 03:55) Home Medications: Medication Instructions Recorded NK [No Known Home Meds] 02/13/17 Medical Decision Making - Data Points Medications Given: Acetaminophen (Tylenol) 650 mg PO Q4HRS PRN PRN Reason: Pain, Mild/Fever, Can Take PO Stop: 08/17/17 05:43 Last Admin: 02/19/17 14:41 Dose: 650 mg Enoxaparin Sodium (Lovenox) 40 mg SC DAILY [facility] Stop: 08/17/17 08:59 Last Admin: 02/19/17 08:26 Dose: 40 mg Guaifenesin/Dextromethorphan (Robitussin Dm Oral Liquid) 10 ml PO Q4HRS PRN PRN Reason: Cough, Moderate Stop: 08/17/17 06:34 Last Admin: 02/19/17 08:32 Dose: 10 ml Lactated Ringer's (Lr) 1,000 mls @ 75 mls/hr IV CONT G[place] Stop: 08/17/17 06:59 Last Admin: 02/19/17 17:02 Dose: 1,000 mls Ketorolac Tromethamine (Toradol) 30 mg IVP Q6HRS PRN PRN Reason: Pain, Inflammatory Stop: 02/24/17 15:00 Last Admin: 02/19/17 15:58 Dose: 30 mg Discontinued Medications Albuterol/Ipratropium (Duoneb) 3 ml IH EDNOW ONE Stop: 02/18/17 03:54 Last Admin: 02/18/17 04:04 Dose: 3 ml Sodium Chloride (Ns) 1,000 mls @ 0 mls/hr IV ONCE ONE; Wide Open PRN Reason: Protocol Stop: 02/18/17 03:54 Last Admin: 02/18/17 04:23 Dose: 1,000 mls Levofloxacin/Dextrose (Levaquin 750 Mg (Premix)) 150 mls @ 100 mls/hr IV EDNOW ONE PRN Reason: Protocol Stop: 02/18/17 05:25 Last Admin: 02/18/17 04:23 Dose: 150 mls Sodium Chloride (Ns) 1,000 mls @ 0 mls/hr IV ONCE ONE PRN Reason: Wide Open Stop: 02/18/17 04:03 Last Admin: 02/18/17 04:22 Dose: 1,000 mls Levofloxacin/Dextrose (Levaquin 500 Mg (Premix)) 100 mls @ 100 mls/hr IV DAILY [place] PRN Reason: Protocol Stop: 03/21/17 03:59 Last Admin: 02/19/17 09:51 Dose: 100 mls Ibuprofen (Motrin) 400 mg PO Q8HRS PRN PRN Reason: Pain, Inflammatory Stop: 08/17/17 05:43 Last Admin: 02/19/17 09:50 Dose: 400 mg Oxycodone HCl (Oxycodone Ir) 5 mg PO ONCE ONE Stop: 02/19/17 01:28 Last Admin: 02/19/17 01:36 Dose: 5 mg Departure - Departure Disposition: [facility] Inpatient Acute Clinical Impression: Pneumonia Qualifiers: Pneumonia type: due to unspecified organism Laterality: left Lung location: lower lobe of lung Qualified Code(s): J18.1 - Lobar pneumonia, unspecified organism Condition: Fair
[2017-02-18 04:35] LABS: PLATELET COUNT 462 10^3/uL (150-400)
--- NOTE | 2017-02-18 05:17 | CPEKG ---
Heart Rate: 96 RR Interval: 625 P-R Interval: 124 QRSD Interval: 82 QT Interval: 364 QTC Interval: 460 P [place]: 58 QRS [place]: -1 T Wave [place]: 11 EKG Severity - BORDERLINE ECG - EKG Impression: SINUS RHYTHM EKG Impression: BORDERLINE T WAVE ABNORMALITIES Electronically Signed By: Otilio Comer 18-Feb-2017 07:24:41
[2017-02-18] MEDS ORDERED: diphenhydrAMINE 25 MG CAP PO PRN (05:44)
[2017-02-18] MEDS ORDERED: PROMETHAZINE HCL 25 MG/ML INJ IVP PRN (05:44)
[2017-02-18] MEDS ORDERED: LORazepam 0.5 MG TAB PO PRN (05:44)
[2017-02-18] MEDS ORDERED: ONDANSETRON 4 MG/2 ML VIAL IVP PRN (05:44)
[2017-02-18] MEDS ORDERED: LR 1,000 ML IV SCH (06:00)
[2017-02-18] MEDS ORDERED: GUAIFENESIN/DM 10 ML UDCUP PO PRN (06:35)
[2017-02-18] MEDS ORDERED: BENZONATATE 100 MG CAP PO PRN (06:35)
--- NOTE | 2017-02-18 07:08 | GHP ---
[f rep st] HISTORY AND PHYSICAL DATE OF ADMISSION: 02/18/2017 SOURCE: Patient provides history, appears reliable. Her EMR was also reviewed. Patient was just ho spitalized on 02/13/2017, and left AMA on 02/13/2017, with septic shock due to strep pneumoniae and b acteremia. CHIEF COMPLAINT: Worsening shortness of breath and cough. HISTORY OF PRESENT ILLNESS: This is a pleasant 26-year-old female with past medical history signific ant for tobacco abuse and recent hospital stay as noted above for septic shock due to strep pneumonia e and bacteremia. Patient also with acute hypoxic respiratory failure with tachypnea, but did not re quire intubation. She did require pressor support temporarily for her septic shock and was weaned of f Levophed. Additionally, patient had developed a nonsustained ventricular tachycardia episode for w hich it was thought possibly related to placement of a PIC or irritability related to her pneumonia. She did have an echocardiogram that was within normal limits without evidence of effusion. On Decem fabricio 17, in the early a.m., the patient became upset as staff had asked her mother to locate other a lternative sleeping arrangements as she was sleeping in the lobby inappropriately. The patient becam e upset and left AMA without any discharge paperwork or prescriptions. She was initially treated wit h Rocephin and subsequently transitioned to Levaquin p.o. The patient returns from the long term today with complaints of worsening cough, shortness of breath, a nd increase left pleuritic chest wall pain. The patient denies any subjective fevers, but has been h aving increasing chills and sweats. She overall feels quite unwell, fatigued and ill. She has had o ccasional nausea and vomiting and particularly post-tussive emesis. She states that she has coughed up just some phlegm. No hemoptysis. REVIEW OF SYSTEMS: GENERAL: Patient denies any fevers. Positive for chills and sweats as noted abo ve. SKIN: No rashes sores. ENT: Patient reports some rhinorrhea. No sore throat. EYES: Patient denies acute changes in vision or ocular pain. CV: No chest pain or palpitations. The patient is complaining of some left lower and lateral chest wall pain with coughing and deep breaths. RESPIRATO RY: See HPI. GI: Nausea and vomiting. No diarrhea. No abdominal pain. : No dysuria or hematu jeannine. MUSCULOSKELETAL: Patient denies any joint pain or myalgias. NEURO: Patient with headache yes terday that has since resolved. No numbness or tingling. No focal deficits. PSYCH: The patient re ports that she does have a history of anxiety which is currently controlled. She denies any depressi on. No SI or HI. ALLERGIES: No known drug allergies. HOME MEDICATIONS: None. PAST MEDICAL HISTORY: Significant for anxiety, multilobar pneumonia and bacteremia with septic shock as noted above, homelessness and tobacco dependence. PAST SURGICAL HISTORY: Significant for tonsillectomy, adenoidectomy and bilateral tympanostomy tube placement. FAMILY HISTORY: Significant for father with history of diabetes type 2, he is age 64 relate d to massive PE. Mother with history of osteoarthritis. SOCIAL HISTORY: Patient currently homeless. She is living with her mother and fiance at the long term . She does not drink by her report. She denies any illicit drug use or marijuana use. She does con tinue to smoke but states that since she became ill and being admitted, she has not smoked since that time, but she plans to quit. CODE STATUS: Full. Patient without advance directives, desires her kaycee Christophe Zazueta or her garfield Lindsey to act as proxy if needed. PHYSICAL EXAMINATION: VITAL SIGNS: Upon arrival to the emergency department, blood pressure 116/67, heart rate 97, respiratory rate 18, O2 saturation 95% on room air with a temperature 36.6. Current vitals, blood pressure 114/75, heart rate 96, respiratory rate 20, O2 saturation 96% on room air. GE NERAL: No acute distress, pleasant, acutely ill female is sitting up on the gurney. She does not ap pear toxic, but fatigued and slightly flushed. HEAD: Normocephalic, atraumatic. EYES: Extraocular muscles are intact. Pupils are equal, round, reactive to light bilaterally and symmetric. No scler al icterus or conjunctival injection. ENT: Mucous membranes appear moist. No oropharyngeal erythem a or exudates. NECK: Supple. Trachea midline. CV: Regular rate and rhythm. Slightly tachycardic in the 90s. No murmurs, rubs, or gallops appreciated. RESPIRATORY: No increased work of breathing except when patient moves. She has significantly diminished air movement on the left compared to th e right, intermittent cough, congestion. ABDOMEN: Obese, soft, nontender to palpation. No rebound, guarding, or masses appreciated. : No Tobias in place. No suprapubic tenderness to palpation. E XTREMITIES: The patient moves all extremities. Strength grossly normal, 5/5 in upper and lower extr emities. NEURO: Cranial nerves grossly nonfocal. No facial drooping. Moves all extremities. PSYC H: The patient awake, alert and oriented x4. Thought process, content and questions appropriate. T he patient does appear fatigued. Affect is slightly flat, but she is overall still cooperative and p leasant. LABORATORY STUDIES: 1. WBC 11.69, H and H is 15.2, 44.9, MCV 83.0, platelet count is 462. No bands, immature granulocyt e 0.12. VBG lactic acid 1.9. Sodium is 144, potassium 4.4, chloride is 106, CO2 25, anion gap 13, B UN 11, creatinine 0.6, GFR greater than 60. Glucose 88, calcium 9.2. Phos and mag are pending. Pre vious flu PCR was negative on 02/13/2017. Previous tox screen on 02/13/2017 was also negative. The patient's blood cultures on 02/13/2017 were all positive x3 for strep pneumonia. 2. EKG reviewed myself, sinus tach in the 90s. Some ST flattening in the inferolateral leads. No a cute ST elevations or depressions. QTc is 460. 3. Chest x-ray reviewed myself showing left middle lower lobe pneumonia. ASSESSMENT/PLAN: 26-year-old female who presents after leaving [place] from septic shock and strep pneum onia with bacteremia now presents on return after 2 days with complaints of worsening dyspnea. 1. Strep pneumoniae. The patient will be placed back on Levaquin IV at this time. Blood cultures w ill be obtained to ensure that she has clearance. She has reported persistent chills without rigors and sweats. 2. Acute hypoxic respiratory failure. The patient continues to require some supplemental oxygen. W e will continue to titrate as tolerated. Incentive spirometry will be ordered. 3. Bacteremia due to strep pneumoniae. Antibiotics as noted above. The patient will require some l toro-term therapy. I have reviewed with the patient and enforced the importance of staying in the hos pital until such time that she is appropriately discharged to that she can ensure that she has total recovery from her illness which is untreated could be fatal. 4. History of nonsustained ventricular tachycardia (NSVT) upon last hospitalization. We will check electrolytes and replace if needed. We will place patient on remote telemetry. 5. Thrombocytosis is likely reactive in setting of incompletely treated bacteremia infection. Levaq uin as noted above. Continue to monitor CBC. 6. Fluid, electrolyte, nutrition. Patient will receive LR for continued IV support. Encourage oral intake as tolerated. Electrolyte replacement as noted above. We will focus on correcting higher en d of normal with history of NSVT. Diet as tolerated. 7. Prophylaxis. Sequential compression devices and Lovenox. 8. Code status is full. Patient desires to Christophe benoit or mother, Lisa Lindsey to act a s proxy if needed. 9. Disposition. The patient has been admitted to inpatient status while awaiting repeat culture justen justin and need for IV antibiotics at this time. /[id number]/MODL
[2017-02-18] MEDS: LR 1,000 ML IV SCH ×2 (08:48→22:21)
[2017-02-18] MEDS: ENOXAPARIN 40 MG/0.4 ML SYR SC SCH (08:48)
[2017-02-18] MEDS: ACETAMINOPHEN 325 MG TAB PO PRN ×2 (09:41→17:31)
--- NOTE | 2017-02-18 10:14 | ASMTCASEMG ---
Living Arrangements What is your living Answers: Alone arrangement? Who do you live with? Type Of Residence What kind of residence do Answers: Homeless you live in? Discharge Plan Comments Coordination Status Comments Notes: Pt is a 26 y/o female admitted for worsening shortness of breath and coughing. Pt was recently here at [facility] on 02/13/17 and left AMA the same day. Anticipates that pt will d/c independent when medically stable. No therapies ordered at this time. CM available for changes. Plan: Independent Date Signed: 02/18/2017 10:14 AM Electronically Signed By:GAGE Zhao
--- NOTE | 2017-02-18 12:45 | PDMN ---
Medical Necessity Medical necessity: est los>2mn for strep pneumonia, acute hypoxic resp failure, and bacteremia r/t strep pneumonia after leaving AMA 2 days ago; admit for IV ax , repeat blood cx's. O2; comorbid NSVT, and homelessness; per order and H&P
--- NOTE | 2017-02-18 15:39 | HOSPPROG ---
Hospitalist Progress Note Assessment/Plan: # streptococcal bacteremia- secondary to underlying pneumonia- patient admitted with septic shock and stabilized Left the hospital against medical advice on 02/16/2017 without antibiotics- returns today with shortness of breath and feeling ill - repeat blood cultures obtained - started on IV levofloxacin # community-acquired pneumonia- chest x-ray(personally reviewed and interpreted ) dense lingular infiltration Oxygen saturations 94% on room air- patient with some pleuritic chest pain on left - continue IV antibiotics - continue inhaled beta agonists - continue anti inflammatories p.r.n. # leukocytosis- white count increased to (from discharge- suspect secondary to untreated pneumonia and bacteremia - continue antibiotics - follow white blood cell count # tobacco dependance - nicotine patch p.r.n. # Diet regular # prophylaxis Lovenox # disposition greater than 2 midnights as the patient requires IV antibiotics for stabilization I have discussed the case with the RN- will continue IV levofloxacin Subjective: pain in left chest with inspiration Objective: Vital Signs Temp Pulse Resp BP Pulse Ox 36.9 C 72 20 123/67 H 94 02/18/17 11:17 02/18/17 11:17 02/18/17 11:17 02/18/17 11:17 02/18/17 11:17 Laboratory Results 02/18/17 04:20 02/18/17 04:20 02/17/17 02/18/17 02/19/17 05:59 05:59 05:59 Intake Total 2300 Output Total 750 Balance 1550 - Physical Exam Constitutional: appears nourished Eyes: anicteric sclera Ears, Nose, Mouth, Throat: dry mucous membranes Cardiovascular: regular rate and rhythym Respiratory: no respiratory distress, reduced air movement, No expiratory wheeze Gastrointestinal: normoactive bowel sounds Genitourinary: no bladder fullness Skin: warm Musculoskeletal: No asymmetric calves Psychiatric: interacting appropriately Lymph, Heme, Immunologic: no cervical LAD ICD10 Worksheet Patient Problems: Problems Problem Status Onset Pneumonia Acute Severe sepsis Acute
[2017-02-18] MEDS: IBUPROFEN 200 MG TAB PO PRN (15:48)
[2017-02-19] MEDS: ACETAMINOPHEN 325 MG TAB PO PRN ×3 (01:11→14:41)
[2017-02-19] MEDS: IBUPROFEN 200 MG TAB PO PRN ×2 (01:11→09:50)
[2017-02-19] MEDS ORDERED: oxyCODONE IR 5 MG TAB PO ONE (01:27)
[2017-02-19] MEDS: levOFLOXACIN 500 MG/DEXTROSE 100 ML IV SCH ×2 (04:35→09:51)
[2017-02-19 05:32] LABS: PLATELET COUNT 434 10^3/uL (150-400)
[2017-02-19] MEDS: ENOXAPARIN 40 MG/0.4 ML SYR SC SCH (08:26)
[2017-02-19] MEDS ORDERED: IOPAMIDOL (ISOVUE 370) 100 ML BTL IV ONE (13:13)
--- NOTE | 2017-02-19 14:43 | HOSPPROG ---
Hospitalist Progress Note Assessment/Plan: # streptococcal bacteremia- secondary to underlying pneumonia- patient admitted with septic shock and stabilized Left the hospital against medical advice on 02/16/2017 without antibiotics- HIV negative - repeat blood cultures NGTD - cont IV ceftriaxone # community-acquired pneumonia- chest CT (personally reviewed and interpreted) increased consolidations LLL and JACEK with new effusion on left Oxygen saturations 94% on room air- worsening pleuritic CP overnight on left - continue IV ceftriaxone - continue inhaled beta agonists - start toradol today - CT chest ruled out PE # leukocytosis- WBC remains 11 - continue IV antibiotics - follow white blood cell count # tobacco dependance - nicotine patch p.r.n. # Diet regular # prophylaxis Lovenox # disposition greater than 2 midnights as the patient requires IV antibiotics for stabilization I have discussed the case with the ID - CT to rule out empyema/effusion Subjective: left chest pain worsened Objective: Vital Signs Temp Pulse Resp BP Pulse Ox 37.2 C 94 20 110/69 94 02/19/17 11:34 02/19/17 11:34 02/19/17 11:34 02/19/17 11:34 02/19/17 11:34 Laboratory Results 02/19/17 04:53 02/19/17 04:53 02/18/17 02/19/17 02/20/17 05:59 05:59 05:59 Intake Total 3964 0 Output Total 1650 875 Balance 2314 -875 - Physical Exam Constitutional: appears nourished Eyes: anicteric sclera Ears, Nose, Mouth, Throat: moist mucous membranes Cardiovascular: regular rate and rhythym Respiratory: no respiratory distress, reduced air movement, No expiratory wheeze Gastrointestinal: normoactive bowel sounds Genitourinary: no bladder fullness Skin: warm Musculoskeletal: No asymmetric calves Neurologic: AAOx3 Psychiatric: interacting appropriately Lymph, Heme, Immunologic: no cervical LAD ICD10 Worksheet Patient Problems: Problems Problem Status Onset Pneumonia Acute Severe sepsis Acute
[2017-02-19] MEDS: KETOROLAC 30 MG/1 ML SDV IVP PRN ×2 (15:58→23:19)
[2017-02-19] MEDS: LR 1,000 ML IV SCH (17:02)
--- NOTE | 2017-02-19 20:21 | GCON ---
[f rep st] CONSULTATION DATE OF CONSULTATION: 02/19/2017 PHYSICIAN: Dr. Lubna Dowell REASON FOR CONSULTATION: Streptococcus pneumoniae, bacteremia, and pneumonia. HISTORY OF PRESENT ILLNESS: The patient is a 26-year-old female who was hospitalized at [facility] on 02/13/2017 with severe sepsis due to Streptococcus pneumoniae, bacteremia, and left l ingular pneumonia. The patient was treated with IV ceftriaxone with clinical improvement. This was transitioned to oral levofloxacin based on susceptibility profile. The patient ultimately left A on 02/16/2017 without further antibiotics. Yesterday, she returned t o the hospital with complaints of worsening left-sided pleuritic chest pain, persistent dry cough, an d shortness of breath. No ongoing fever or chills. During her prior hospital stay, she was noted to have some nonsustained ventricular tachycardia which was felt to be related PIC positioning or pneum onia. Echocardiogram was performed during her initial stay which showed no evidence of pericardial e ffusion or vegetation. Ejection fraction was normal. She does describe having ongoing night sweats which are drenching. No significant nausea, vomiting, or diarrhea. No hemoptysis. She continues to be significantly fatigued. Repeat blood cultures obta ined yesterday have show no growth. Repeat chest x-ray shows persistent left lingular infiltrate, al though improved, versus previous without overt effusion being present. Given the above findings, I am now asked to assist in her ongoing management. PAST MEDICAL HISTORY: Anxiety, as above. PAST SURGICAL HISTORY: Tonsillectomy, tympanostomy tube placement. CURRENT MEDICATIONS: Levofloxacin 500 mg IV daily, Lovenox 40 mg subcu daily, Toradol as needed for pain, Robitussin DM as needed for cough. ALLERGIES: No known drug allergies. SOCIAL HISTORY: The patient smokes but notes she has decreased to 2 cigarettes per day since onset o f illness. The patient does not drink alcohol or use drugs. She currently is homeless and has been traveling around the country living out of a car. FAMILY HISTORY: Father with type 2 diabetes. REVIEW OF SYSTEMS: Outside that noted in the HPI, remainder of a 10-system review is unremarkable. PHYSICAL EXAMINATION: VITAL SIGNS: Temperature 36.6, heart rate 92, respiratory rate 18, blood pres sure 114/67, oxygen saturation 94% on room air. GENERAL: Patient is well nourished, well developed, in no acute distress. She appears nontoxic. HEENT: There is no scleral icterus, conjunctival inje ction, or conjunctival petechiae. The oropharynx is clear without lesions. Dentition is in fair rep air. There is no nasal discharge. There is no tenderness over the sinuses. NECK: Supple without p alpable lymphadenopathy or thyromegaly. CHEST: There are decreased breath sounds in the left lung f ields approximately [place] up. No egophony present. The right lung field is clear to auscultation. The respiratory effort is normal. There is no pleural rub noted. CARDIOVASCULAR: Regular rate an d rhythm without murmurs, gallops, rubs. ABDOMEN: Soft, nontender, nondistended. There is no palpa ble organomegaly. Bowel sounds are present. MUSCULOSKELETAL: No cyanosis, clubbing, or edema. SKI N: No rashes are present. No stigmata of endocarditis. The skin is warm and dry to touch. NEUROLO GIC: Patient is alert and interacts appropriately with examiner. Cranial nerves 2-12 are grossly in tact. Sensation is grossly intact. Muscle tone and bulk are normal. LYMPHATICS: No cervical or pena praclavicular lymphadenopathy. LABORATORY DATA: White blood cell count 11.2, hematocrit 39.5, platelets 434, neutrophils 65%, lymph ocytes 26%, serum creatinine 0.5, albumin 3.0, AST 11, ALT 23, bilirubin 0.2, alkaline phosphatase 62 . Beta HCG negative. HIV antibody negative. Urine Streptococcus pneumoniae antigen negative. Infl uenza PCR on 02/13/2017 was negative. Venous lactate 1.9. IMAGING: Chest x-ray shows improving left-sided infiltrate without overt effusion being present. IMPRESSION: Streptococcus pneumoniae, bacteremia, associated with left lingular pneumonia. Repeat b lood cultures are showing no growth to date. The patient has experienced incomplete treatment based on previously leaving against medical advice. Pneumococcal isolate is oseguera susceptible except for tri methoprim sulfamethoxazole. In the setting of persistent pleuritic chest pain, concern that she may be evolving complicated parapneumonic effusion. RECOMMENDATIONS: 1. Ceftriaxone 2 g IV q.24 hours. 2. Discontinue levofloxacin. 3. Agree with plans for CT scan of chest to assess for complicated parapneumonic effusion. If prese nt, would necessitate thoracentesis for further evaluation. 4. We will check serum immunoglobulins. 5. Counseled regarding smoking cessation and smoking has been associated with invasive pneumococcal disease. Thank you for this consultation. We will continue to follow the patient with you. /[id number]/MODL
[2017-02-20] MEDS: KETOROLAC 30 MG/1 ML SDV IVP PRN (05:07)
[2017-02-20 05:38] LABS: PLATELET COUNT 442 10^3/uL (150-400)
[2017-02-20] MEDS: ENOXAPARIN 40 MG/0.4 ML SYR SC SCH (09:05)
--- NOTE | 2017-02-20 11:32 | PCMIDPN ---
Assessment/Plan: Assessment: Readmission for incompletely treated pneumococcal pneumonia and bacteremia due to patient leaving AMA. Patient is improved now back on IV ceftriaxone. Plan to discharge tomorrow on oral Avelox to complete total treatment course. Clinically the patient is much improved. Plan: 1. Continue IV ceftriaxone. 2. Start oral Avelox after discharge. Plan 10 days total duration from restart date. 02/20/17 14:53 02/20/17 14:54 Subjective: Patient is resting in her hospital bed. She is in good spirits. She has a good appetite. States she is feeling much better. No subjective fevers or chills. States that her pain on her left side with inspiration is much better. Objective: Ceftriaxone # 3 Vital Signs Temp Pulse Resp BP Pulse Ox 37.1 C 100 18 123/68 H 93 02/20/17 11:25 02/20/17 11:25 02/20/17 11:25 02/20/17 11:25 02/20/17 11:25 Laboratory Results 02/20/17 04:55 02/20/17 04:55 02/19/17 02/20/17 02/21/17 05:59 05:59 05:59 Intake Total 3964 3884 Output Total 1650 2775 Balance 2314 1109 - Physical Exam General Appearance: WD/WN, alert, no apparent distress, non-toxic Respiratory: lungs clear, normal breath sounds, No respiratory distress Cardiac/Chest: regular rate, rhythm, No tachycardia Skin: normal color, warm/dry, No rash Neuro/Psych: alert, normal mood/affect, oriented x 3 ICD10 Worksheet Patient Problems: Problems Problem Status Onset Pneumonia Acute Severe sepsis Acute
--- NOTE | 2017-02-20 16:03 | HOSPPROG ---
Hospitalist Progress Note Assessment/Plan: # streptococcal bacteremia- secondary to underlying pneumonia- patient admitted with septic shock and stabilized Left the hospital against medical advice on 02/16/2017 without antibiotics- HIV negative - repeat blood cultures 02/18 NGTD - cont IV ceftriaxone - will transition to PO Moxifloxacin at dc # community-acquired pneumonia- chest CT (personally reviewed and interpreted) increased consolidations LLL and JACEK with new effusion on left Oxygen saturations 94% on room air- improving pleuritic CP overnight on left - continue IV ceftriaxone - continue inhaled beta agonists - start toradol today - CT chest ruled out PE # leukocytosis- WBC down to 9 - continue IV antibiotics - follow white blood cell count # tobacco dependance - nicotine patch p.r.n. # Diet regular # prophylaxis Lovenox # disposition greater than 2 midnights as the patient requires IV antibiotics for stabilization I have discussed the case with the ID - will transition to PO moxifloxacin on dc Subjective: pain improved Objective: Vital Signs Temp Pulse Resp BP Pulse Ox 36.8 C 104 H 20 109/62 95 02/20/17 15:02 02/20/17 15:02 02/20/17 15:02 02/20/17 15:02 02/20/17 15:02 Laboratory Results 02/20/17 04:55 02/20/17 04:55 02/19/17 02/20/17 02/21/17 05:59 05:59 05:59 Intake Total 3964 3884 4400 Output Total 1650 2775 Balance 2314 1109 4400 - Physical Exam Constitutional: no apparent distress Eyes: anicteric sclera Ears, Nose, Mouth, Throat: moist mucous membranes Cardiovascular: regular rate and rhythym Respiratory: no respiratory distress, inspiratory crackles Gastrointestinal: normoactive bowel sounds Genitourinary: no bladder fullness Skin: warm Musculoskeletal: No asymmetric calves Neurologic: AAOx3 Psychiatric: interacting appropriately Lymph, Heme, Immunologic: no cervical LAD ICD10 Worksheet Patient Problems: Problems Problem Status Onset Pneumonia Acute Severe sepsis Acute
[2017-02-20 23:47] VITALS: O2SAT 93
[2017-02-21 07:41] VITALS: BP 105/68; PULSE 98; RESP 14; TEMP 98.3
[2017-02-21] MEDS: ENOXAPARIN 40 MG/0.4 ML SYR SC SCH (08:31)
--- NOTE | 2017-02-21 13:33 | ASDISCHSUM ---
Discharge Information Plan Status:Home with No Needs Medically Cleared to Leave:02/20/2017 Discharge Date:02/21/2017 12:50 PM CM D/C Disposition:Home, Routine, Self-Care ADT D/C Disposition:Home, Routine, Self-Care Projected Discharge Date:02/21/2017 12:00 AM Transportation at D/C: Discharge Delay Reason: Follow-Up Date:02/21/2017 12:00 AM Discharge Slot: Final Diagnosis: Placement Information Patient Contact Information Contact Name:SHANTI Relationship: Address: Home Phone: Work Phone: City: Alternate Phone: State/[employer] Code: Email: Financial Information Financial Class: Primary Plan Desc:[employer] [place] Primary Plan Number:[id number] Secondary Plan Desc: Secondary Plan Number: Assessment Information [facility] Initial CM Assessment Living Arrangements What is your living Answers: Alone arrangement? Who do you live with? Type Of Residence What kind of residence do Answers: Homeless you live in? Discharge Plan Comments Coordination Status Comments Notes: Pt is a 26 y/o female admitted for worsening shortness of breath and coughing. Pt was recently here at [facility] on 02/13/17 and left AMA the same day. Anticipates that pt will d/c independent when medically stable. No therapies ordered at this time. CM available for changes. Plan: Independent Date Signed: 02/18/2017 10:14 AM Electronically Signed By:GAGE Zhao Case Management Discharge Plan Note Case Management Discharge Discharge Order Complete? Answers: Yes Patient to Obtain Answers: Other Notes: Assisted with [facility] since Medications Medicaid unavailable to fill prescriptions (not added to portal yet) Transportation Arranged Answers: Family/Friends EMTALA Complete Answers: No Notes: NA Case Management Transport Answers: No Notes: NA Form Complete Faxed Final Orders Answers: No Notes: NA Agency/Facility Transfer Answers: No Notes: NA Report Printed & Faxed to Receiving Agency Family Notified Answers: Yes Notes: Patient's mother and boyfriend were with her . Discharge Comments Notes: Patient leaving to travel to [place] today where the climate is warmer and they can continue to be travelers. Date Signed: 02/21/2017 01:26 PM Electronically Signed By:Mell Velazquez LCSW Intervention Information
--- NOTE | 2017-02-21 16:05 | GDS ---
[f rep st] DISCHARGE SUMMARY DISCHARGE DIAGNOSES: 1. Septic shock secondary to streptococcal bacteremia. 2. Severe streptococcal pneumonia. 3. Tobacco abuse. 4. Leukocytosis. HISTORY OF PRESENT ILLNESS: This is a 26-year-old female who was initially admitted prior to this pr esentation with septic shock, was found to have streptococcal pneumonia and bacteremia. She was hemo dynamically stabilized, and then left the hospital without antibiotics against advice. The patient r eturned on 02/18/2017 feeling ill. Please review the H and P for details of this presentation. CONSULTATIVE SERVICES: Infectious Disease. PROCEDURES: On 02/19/2017, the patient underwent CT of the chest that ruled out pulmonary embolism, and showed progressive pulmonary infiltrates related to her streptococcal pneumonia without complicat ed empyema or abscess. HOSPITAL COURSE: 1. Streptococcal pneumonia. The patient is HIV negative, was placed on IV levofloxacin based on cul ture data available from her initial hospital stay. She had clinical improvement in her left-sided p leuritic chest pain and systemic complaints. She is being transitioned to p.o. moxifloxacin at [facility], [place] to complete an outpatient 10-day course. 2. Streptococcal bacteremia. The patient is being treated as above with p.o. moxifloxacin for her b acteremia. Repeat cultures on 02/18/2017 have cleared. MEDICATIONS: Please reference the med rec printed on 02/21/2017. PENDING STUDIES: At the time of discharge: Blood cultures 02/18/2017 are preliminary no growth to d ate at the time of discharge. FOLLOWUP APPOINTMENTS: To be established with primary care provider at the conclusion of her antibio tic course, as well as with Infectious Disease in the next 2-3 weeks for followup. I spent greater than 30 minutes in the planning and coordination of this discharge. /[id number]/MODL
--- NOTE | 2017-02-26 22:40 | PQFORM ---
PHYSICIAN QUERY FORM Needs Your Response This query form is being sent to you to assure this patient record is coded properly. Please respond to the question below: MOTOR VEHICLE TECHNICIAN QUESTION: Dr Tai This patient had been previously admitted and then left AMA with a dx of Sepsis. She returned this encounter with Pneumonia. Bacteremia was documented through out the chart with Sepsis being documented on the Summary. Just to clarify did this patient have Sepsis this admission? ___ Yes __x_ No ___ Other (please specify __) ___ Unable to determine Thank You Latisha GALINDO Airplane Pilot Photogrammetry INSTRUCTIONS FOR RESPONSE: Answer question by clicking on the "Edit Document" button. Move cursor to area below the stars. When complete, hit "Save." Click on the "Sign" button, then click "Sign" again. Type in your PIN and hit "Enter." MTDD
== END 2017-02-21 12:50 | disposition home or self-care (01) | DRG 194 ==
LOC: EDUNIT# → F3E 08:29
PROVIDERS: ADMIT Family Medicine; ATTEND Family Medicine
DX: J13 Pneumonia due to Streptococcus pneumoniae (principal); R78.81 Bacteremia; Z59.0 Homelessness; F17.210 Nicotine dependence, cigarettes, uncomplicated; F41.9 Anxiety disorder, unspecified
CPT/HCPCS: 82784-90; J0696; J1650; J1885; J1956; Q9967